=== PATIENT | male | born 1940 | race Caucasian/White ===

== ENCOUNTER → 2016-11-29 | Outpatient (CLI) | payer OTHER, BC ==
--- NOTE | ~2016-11-29 | EXE ---
[facility] [employer]anny [place] [address] STRESS ECHOCARDIOGRAM Name: JOSHUA CAMPA Room #: REG [facility]#: [id number] Admission: 11/29/16 Attend Phys: Mark Alberts MD Discharge: Date of : 38 Date of Service: 11/29/16 1514 Report #: [id number] THIS REPORT FOR: //name// ADDENDUM APPROVED REPORT Exam: Stress Echocardiogram Indication: Chest pain Patient Location: Echo lab Stress Nurse: Andree Bradshaw RN Status: routine Ht: 5 ft 8 in BP: 154/94 mmHg Medical History Medical History: HTN Procedure The patient underwent an Exercise Stress Test using the Chevy Protocol. Blood pressure, heart rate, and EKG were monitored. An Echocardiogram was performed by asbestos abatement technician in four stages in quad fashion. At peak stress, four selected images were obtained and placed side by side with resting images for comparison. Stress Test Details Stress Test: Exercise stress testing was performed using a Chevy protocol. HR Resting HR: 90 bpm Max Heart Rate (APMHR): 143 bpm Max HR Achieved: 157 bpm Target HR (85% APMHR): 121 bpm % of APMHR: 109 Recovery HR: 96 bpm BP Resting BP: 154/94 mmHg Max BP: 174/98 mmHg Recovery BP: 148/80 mmHg ECG Resting ECG: Sinus Rhythm, nonspecific ST-T abnormalities Stress ECG: Sinus Rhythm, nonspecific ST-T abnormalities ST Change: Non-ischemic Clinical Reason for Termination: Completed protocol/moderate fatigue [facility] [address] [place] [address] STRESS ECHOCARDIOGRAM Name: JOSHUA CAMPA Room #: REG [facility].#: [id number] Admission: 11/29/16 Attend Phys: Mark Alberts MD Discharge: Date of : 38 Date of Service: 11/29/16 1514 Report #: [id number] Exercise duration: 9 min 17 sec Highest Stage Achieved: Stage 4: 4.2 mph at 16% grade. Exercise capacity: 10.9 METs Pre-Stress Echo The resting Echocardiogram showed normal left ventricular contractility with an estimated Ejection Fraction of about 55-60%. Mild AI, no MR, no TR noted. Post-Stress Echo The stress Echocardiogram showed normal left ventricular contractility with an estimated Ejection Fraction of about 60-65%. Conclusion Clinical Response: Non-ischemic Exercise Capacity: Above average Stress ECG Response: Non-ischemic Stress Echo Images: Non-ischemic No clinical, EKG or echocardiographic evidence for ischemia. No prior study available for comparison. Other Information Study Quality: Adequate <Conclusion> No clinical, EKG or echocardiographic evidence for ischemia. <ELECTRONICALLY SIGNED> By: Sebastien Jones MD 11/29/16 1514 1514 1514 Sebastien Jones MD /MICHOACANO
== END ==
LOC: CV 13:22
DX: R07.9 Chest pain, unspecified (principal)

== ENCOUNTER → 2017-02-15 | Outpatient (CLI) | payer OTHER, BC | LOC: NUC 07:32 | DX: K80.20 Calculus of gallbladder without cholecystitis without obstruction (principal) ==

== ENCOUNTER 2017-04-12 10:40 | Inpatient (IN) | payer OTHER, BC ==
[~2017-04-12] VITALS: Ht 172.7 cm; Wt 78.9 kg
--- NOTE | ~2017-04-12 | EKG ---
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 : 1940 Requested By: Allison Mahajan Order Number: [id number] MD: Parish Ruiz Measurements Intervals [place] Rate: 91 P: 31 MI: 163 QRS: -46 QRSD: 142 T: 13 QT: 375 QTc: 462 Interpretive Statements Sinus rhythm RBBB and LAFB Compared to ECG 09/11/2000 11:31:35 Left anterior fascicular block now present Right bundle-branch block now present Electronically Signed On 04-12-2017 15:16:40 COILED TUBING SUPERVISOR by Parish Ruiz [email or web address] <ELECTRONICALLY SIGNED> By: Parish Ruiz MD 04/12/17 1516 1104 1104 Parish Ruiz MD /EPI
--- NOTE | ~2017-04-12 | HC ---
[facility] [place] [address] CONSULTATION Name: BOGILBERTOJOSHUA DUFF Room #: 351-P [facility] IN M.R.#: [id number] Admission: 04/12/17 Attend Phys: Mark Alberts MD Discharge: 04/13/17 Date of : 38 Report #: [id number] THIS REPORT FOR: //name// CC: Mark Alberts DATE OF SERVICE: 04/12/2017 HISTORY OF PRESENT ILLNESS: This is a 76-year-old male patient who was evaluated by me for loss of short-term memory. His provides history. She noticed this at 9:30, but it is clear that he woke up with it. She never saw this patient normal after he woke up and she has left and when she came at 9:30 and that is the time, she had a detailed conversation and realized that the patient's speech was intact, but he was repeating the things again and again. He has not improved any. So from the history, it is clear now that he woke up with these episodes and the patient's just noticed at 9:30 when she came back home. He had a recent gallbladder surgery that was about 2 weeks ago. He has no associated focal deficit. He does not even realize that he is having memory deficit. REVIEW OF SYSTEMS: Indicate that he does note that he has hypertension. Some of his long-term memory is preserved like he knows that he has hypertension, he knows his date of , but other memories are significantly impaired like he cannot tell me the age of his children, but can tell me that he has 3 children. I carried out his 14-point review of system. He does have hypertension. He had cholecystectomy. Otherwise, he is healthy and his 14-point review of system is mostly unremarkable. PAST MEDICAL HISTORY: Negative for this kind of episode. FAMILY HISTORY: Negative for any epilepsy. SOCIAL HISTORY: This patient does drink alcohol. He usually drinks 2-3 drinks and does indicate that he did drink about 1 alcoholic drink last night. He does not smoke. PHYSICAL EXAMINATION: NEUROLOGIC: Indicate he is alert. He is responsive. He is able to follow simple and complex command. He does not know what month it is. He has no speech difficulty like dysarthria or dysphasia. His short-term memory is virtually nonexistent at the moment. Some long-term memory is present. Cranial nerve examination 2-12 is unremarkable. Neuromuscular examination is symmetrical. There is no meningeal sign. There is no carotid bruit. There is no thyroid mass. I could not look at the patient's fundus. GENERAL: He is a well-developed individual. HEENT: Does not have any dysmorphic features of eyes, ears and face. His vision and hearing looks adequate. [facility] [address] [place] [address] CONSULTATION Name: JOSHUA CAMPA Room #: 351-P DIS IN M.R.#: [id number] Admission: 04/12/17 Attend Phys: Mark Alberts MD Discharge: 04/13/17 Date of : 38 Report #: [id number] SKIN: He has no edema, cyanosis or jaundice. VITAL SIGNS: His blood pressure is 171/91, respirations 14, pulse is 102 and temperature is 98.3. LABORATORY DATA: Indicates a platelet count of 149. His GFR is 65. He did have a CT head and a CT angiogram done before I saw him and they were mostly unremarkable except for what looks like anatomical variations. His perfusion is normal. IMPRESSION: This patient's clinical presentation is consistent with transient global amnesia. It is unlikely it is stroke. In any event, it is pretty clear now that he woke up with these symptoms and the does not know for sure that he was normal at 7:00 a.m. because the conversation was very limited. He does have a meningioma, can have nonconvulsive seizures, but the history is more consistent with transient global amnesia. RECOMMENDATIONS: 1. MRI of the brain. 2. EEG. 3. Main thing is going to be watched, it is most likely transient global amnesia. Even if it is a stroke, no intervention can be done because this patient woke up with these symptoms. I discussed all of it with the patient as well as the patient's as well as Emergency Room physician multiple times. Thank you very much for this referral and if you have any questions, please feel free to contact me. <ELECTRONICALLY SIGNED> By: Hardy Sepulveda MD 04/20/172008 1245 2311 Hardy Sepulveda MD /nt
--- NOTE | ~2017-04-12 | D ---
[facility] [place] [address] DISCHARGE SUMMARY Name: JOSHUA CAMPA Room #: 351-P [facility] IN M.R.#: [id number] Admission: 04/12/17 Attend Phys: Mark Alberts MD Discharge: 04/13/17 Date of : 38 Report #: [id number] THIS REPORT FOR: //name// CC: Mark Alberts DATE OF ADMISSION: 04/12/2017 DATE OF DISCHARGE: 04/13/2017 HOSPITAL COURSE: This is a 76-year-old male with a known meningioma and benign essential hypertension who had the acute onset of confusion witnessed by his . He seemed unable to remember details of information, but his speech was clear and he had no motor deficits. No seizure activity was identified. She called for recommendation and was referred to the emergency room where he was seen by Dr. Allison Mahajan and subsequently by neurologist, Dr. Sepulveda. HOSPITAL COURSE: The patient was seen in the emergency room, at which time he was noted to be confused and unable to retain information. He had no focal deficits with no motor weakness. A CT scan of the brain and MRI were performed, which showed a stable meningioma with associated vasogenic edema, but no acute ischemic findings or hemorrhage. Clinically, the patient was felt to have transient global amnesia and he was hospitalized for overnight observation. During the late afternoon, the patient became totally clear and had resolution of all of his neurologic deficits, and he remained stable overnight. The patient was discharged on the morning of April 13 for outpatient followup. FINAL DIAGNOSES: 1. Transient global amnesia. 2. Frontal meningioma with vasogenic edema, stable. 3. Benign essential hypertension, controlled. 4. Chest pain, noncardiac. DISCHARGE MEDICATIONS: The patient is resuming all of his home medications, which include simvastatin 10 mg, valsartan 320 mg, Celebrex 200 mg, hydroxychloroquine 400 mg, Nasacort nasal inhaler, aspirin 81 mg, vitamin D3 2000 units. DISPOSITION: Resume usual activities, may return to work and drive a motor vehicle. He is to be seen in the office in 2 weeks. No limitations were placed on the patient. Regular diet. LAB INSTRUCTOR: Hardy Sepulveda M.D. (neurology). [facility] [address] [place] [address] DISCHARGE SUMMARY Name: JOSHUA CAMPA Room #: 351-P DIS IN [facility].#: [id number] Admission: 04/12/17 Attend Phys: Mark Alberts MD Discharge: 04/13/17 Date of : 38 Report #: [id number] PROCEDURES: None. <ELECTRONICALLY SIGNED> By: Mark Alberts MD 04/26/17 0642 0704 0801 Mark Alberts MD /nt
--- NOTE | ~2017-04-12 | H ---
[facility] [place] [address] HISTORY AND PHYSICAL Name: JOSHUA CAMPA Room #: 351-P ADM IN M.R.#: [id number] Admission: 04/12/17 Attend Phys: Mark Alberts MD Discharge: Date of : 38 Report #: [id number] THIS REPORT FOR: //name// CC: Mark Alberts DATE OF SERVICE: 04/12/2017 This patient presented to the Emergency Room on the request of his primary care physician. CHIEF COMPLAINT: Confusion (per ). HISTORY OF PRESENT ILLNESS: Earlier this morning, the patient's noted that he was confused, could not recall events. His speech was clear and he had no evidence of motor weakness, but he repeated himself and seemed unable to retain information. Dr. Alberts was consulted by phone with a preliminary diagnosis of transient global amnesia. It was recommended that the patient be taken to the Emergency Department for evaluation. In the Emergency Room, the patient has been seen by Dr. Silvina Mahajan and by neurologist, Dr. Sepulveda. He has been admitted to the hospital for overnight observation with concern for seizure or stroke syndrome, in spite of his negative preliminary workup. Specifically, the patient has returned to baseline mental status. He has no focal neurologic deficits. An MRI was performed, which showed a stable meningioma with vasogenic edema and a CT scan was performed, which showed no acute changes. PAST MEDICAL HISTORY: The patient has rheumatoid arthritis, hypertension, a frontal meningioma with vasogenic edema and osteoporosis. He was diagnosed in 2017 with obstructive sleep apnea for which he is using a CPAP mask. Minor diagnoses include psoriasis, gout, periodontal disease and rosacea. PAST SURGICAL HISTORY: The patient had a laparoscopic cholecystectomy this month with Dr. Bar. Prior history of tonsillectomy, periodontal surgery and removal of basal cell carcinomas. CURRENT MEDICATIONS: Simvastatin 10 mg, valsartan 320 mg, Celebrex 200 mg, hydroxychloroquine 400 mg, Nasacort inhaler, aspirin 81 mg, vitamin D3 2000 units. 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 He is a nonsmoker. Does consume social alcohol. He is . Recently receiving home health care with physical therapy, occupational therapy and a visiting nurse, following a cholecystectomy. [address] [address] HISTORY AND PHYSICAL Name: JOSHUA CAMPA Room #: 351-P [facility] IN .R.#: [id number] Admission: 04/12/17 Attend Phys: Mark Alberts MD Discharge: Date of : 38 Report #: [id number] REVIEW OF SYSTEMS: GASTROINTESTINAL: He is unclear if his cholecystectomy has resulted any change in his abdominal complaints (bloating). PULMONARY: Negative. CARDIOVASCULAR: Negative. PHYSICAL EXAMINATION: GENERAL: The patient is awake, alert, oriented in all spheres. He is amnestic for the ____ of the morning. Does recall getting up, then has a period of amnesia following which he remembers some of the interventions performed during his Emergency Room visit. The patient has no focal deficits, with no motor weakness. His speech is clear. His orientation is intact to person, place and situation. LUNGS: Clear. CARDIOVASCULAR: S1 and S2 are normal. ABDOMEN: Recent incisions are healing well. The abdomen is rotund, but soft and nontender. IMPRESSION: 1. Altered mental status, resolved, consistent with transient global amnesia (TGA). Although the patient has a stable meningioma, doubt this represents seizure. There is nothing to suggest a diagnosis of ischemic disease in the central nervous system. 2. Frontal meningioma with vasogenic edema, stable. 3. Benign essential hypertension. PLAN: The patient has been seen by Neurology, has now returned to baseline. We will plan to discharge the patient first thing in the morning and send him home for outpatient management utilizing the same home medications. <ELECTRONICALLY SIGNED> By: Mark Alberts MD 04/13/17 0642 [id number] 2226 Mark Alberts MD /nt
--- NOTE | ~2017-04-12 | EEG ---
[facility] [place] [address] ELECTROENCEPHALOGRAM Name: JOSHUA CAMPA Room #: 351-P [facility] IN M.R.#: [id number] Admission: 04/12/17 Attend Phys: Mark Alberts MD Discharge: 04/13/17 Date of : 38 Report #: [id number] THIS REPORT FOR: //name// CC: Mark Alberts DATE OF SERVICE: 04/12/2017 This patient is admitted with symptoms suggestive of transient global amnesia. EEG was done by placing the electrodes by standard 10-20 system of electrode placement. Both referential and sequential montages were used for recording. Background activity in this patient's EEG is about 11 Hz and 40 microvolt. It is a symmetrical activity. The patient became drowsy that is associated with bilateral slowing. Photic stimulation was unremarkable. Throughout the record, no active epileptiform activity was noticed. IMPRESSION: This patient's EEG is within normal limit. Thank you very much for this referral. <ELECTRONICALLY SIGNED> By: Hardy Sepulveda MD 04/20/172010 03 22 Hardy Sepulveda MD /nt
--- NOTE | ~2017-04-12 | EKG ---
[address] [place] [address] ELECTROCARDIOGRAM REPORT Name: JOSHUA CAMPA Room #: 170-5 ADM IN M.R.#: [id number] Admission: 04/12/17 Attend Phys: Mark Alberts MD Discharge: Date of : 38 Report #: [id number] THIS REPORT FOR: //name// [facility] ED Test Date: 2017-04-12 Test Time: 11:32:43 Pat Name: JOSHUA CAMPA Department: Room: 170 Gender: M Commodity Broker: MICHAEL : 1940 Requested By: Allison Mahajan Order Number: [id number] MD: Parish Ruiz Measurements Intervals [place] Rate: 105 P: 58 [place]: 177 QRS: -49 QRSD: 147 T: 13 QT: 332 QTc: 439 Interpretive Statements Sinus tachycardia RBBB and LAFB Compared to ECG 09/11/2000 11:31:35 Left anterior fascicular block now present Right bundle-branch block now present Sinus rhythm no longer present Electronically Signed On 04-12-2017 15:16:57 LETTER OF CREDIT CLERK by Parish Ruiz [email or web address] <ELECTRONICALLY SIGNED> By: Parish Ruiz MD 04/12/17 1516 1132 1132 Parish Ruiz MD /EPI
[2017-04-12 10:42] VITALS: BP 170/97
[2017-04-12 11:00] LABS: ABSOLUTE NEUTROPHILS 4.1 thou/uL (1.4-8.2); BASOPHILS 0.7 % (0.0-2.0); EOSINOPHILS 2.3 % (0.0-3.0); HEMATOCRIT 44.7 % (42.0-52.0); HEMOGLOBIN 15.3 gm/dL (14.0-18.0); LYMPHOCYTES 17.4 % (24.0-44.0); MCH 31.4 pg (26.0-34.0); MCHC 34.2 g/dL (28.0-37.0); MONOCYTES 6.1 % (1.0-8.0); PLATELET COUNT 149 thou/uL (150-400); POLYS 73.5 % (36.0-66.0); RBC 4.86 mil/uL (4.50-6.00); RDW 12.5 % (10.5-14.5); WBC 5.6 thou/uL (4.0-11.0)
[2017-04-12 11:07] LABS: CALCIUM 9.1 mg/dL (8.5-10.1); CREATININE 1.1 mg/dL (0.7-1.3); POTASSIUM 3.7 mmol/L (3.5-5.1)
[2017-04-12] MEDS ORDERED: DIOVAN 80 MG TA80 M1 PO (11:07)
[2017-04-12] MEDS ORDERED: ZOCOR20 MG PO (11:07)
[2017-04-12] MEDS ORDERED: CELEBREX 200 M200 M1 PO (11:08)
[2017-04-12] MEDS ORDERED: BIOTIN0.5 GM PO (11:09)
[2017-04-12] MEDS ORDERED: ASPIR 8181 M1 PO (11:09)
[2017-04-12 11:48] LABS: URINE BILIRUBIN NEGATIVE (Negative); URINE BLOOD NEGATIVE (Negative); URINE CLARITY CLEAR; URINE COLOR YELLOW; URINE GLUCOSE-RANDOM* NEGATIVE (Negative); URINE KETONES NEGATIVE (Negative); URINE LEUKOCYTES NEGATIVE (Negative); URINE NITRITE NEGATIVE (Negative); URINE PROTEIN (DIPSTICK) NEGATIVE (Negative); URINE SPECIFIC GRAVITY <= 1.005 (1.005-1.035); URINE UROBILINOGEN 0.2 E.U./dl (0.2-1.0)
[2017-04-12 14:56] VITALS: BP 171/91
[2017-04-12 15:50] VITALS: BP 141/100
[2017-04-12 19:20] VITALS: BP 121/79
[2017-04-13 03:15] VITALS: BP 118/77
[2017-04-13 08:12] VITALS: BP 126/69
[2017-04-13 09:34] VITALS: BP 126/69
== END 2017-04-13 10:41 | disposition home or self-care (01) | DRG 72 ==
LOC: ER 10:40 → 3W 12:39 → EROBS 12:39 → 3W 15:54
PROVIDERS: Emergency Medicine
DX: G45.4 Transient global amnesia (principal); I10 Essential (primary) hypertension; M06.9 Rheumatoid arthritis, unspecified; D32.9 Benign neoplasm of meninges, unspecified; M81.0 Age-related osteoporosis without current pathological fracture; G47.33 Obstructive sleep apnea (adult) (pediatric); M10.9 Gout, unspecified; Z90.49 Acquired absence of other specified parts of digestive tract; Z79.82 Long term (current) use of aspirin; Z79.899 Other long term (current) drug therapy
CPT/HCPCS: 10879

== ENCOUNTER → 2018-03-21 | Outpatient (CLI) | payer OTHER ==
[~2018-03-21] MED LIST: ASPIR 8181 M1 PO; BIOTIN0.5 GM PO; CELEBREX 200 M200 M1 PO; DIOVAN 80 MG TA80 M1 PO; ZOCOR20 MG PO
== END ==
LOC: CAT 13:16
DX: Z13.6 Encounter for screening for cardiovascular disorders (principal); E78.00 Pure hypercholesterolemia, unspecified

== ENCOUNTER → 2018-10-12 | Outpatient (CLI) | payer OTHER, BC | LOC: CAT 06:59 → LABMALL 06:59 → CAT 16:32 | DX: R91.1 Solitary pulmonary nodule (principal); R14.0 Abdominal distension (gaseous); Z90.49 Acquired absence of other specified parts of digestive tract ==

== ENCOUNTER → 2019-11-28 | Outpatient (CLI) | payer BC | LOC: SJCVC 10:43 | PROVIDERS: ATTEND Internal Medicine Cardiovascular Disease | DX: I25.10 Atherosclerotic heart disease of native coronary artery without angina pectoris (principal); I10 Essential (primary) hypertension; I45.2 Bifascicular block; R94.31 Abnormal electrocardiogram [ECG] [EKG]; E78.00 Pure hypercholesterolemia, unspecified; R53.83 Other fatigue; G47.30 Sleep apnea, unspecified; M10.9 Gout, unspecified; Z90.49 Acquired absence of other specified parts of digestive tract; Z79.82 Long term (current) use of aspirin; Z79.899 Other long term (current) drug therapy ==

== ENCOUNTER → 2020-01-02 | Outpatient (CLI) | payer OTHER, BC | LOC: SJCVCIMAG 07:15 | PROVIDERS: ATTEND Internal Medicine Cardiovascular Disease | DX: I35.1 Nonrheumatic aortic (valve) insufficiency (principal); I10 Essential (primary) hypertension; I45.10 Unspecified right bundle-branch block; E78.00 Pure hypercholesterolemia, unspecified; Z79.899 Other long term (current) drug therapy ==

== ENCOUNTER → 2020-11-18 | Outpatient (CLI) | payer OTHER, BC | LOC: SJCVC 11:08 → SJCVCIMAG 11:08 | PROVIDERS: ATTEND Internal Medicine Cardiovascular Disease | DX: I65.23 Occlusion and stenosis of bilateral carotid arteries (principal); I45.2 Bifascicular block; R94.31 Abnormal electrocardiogram [ECG] [EKG]; I49.3 Ventricular premature depolarization; R09.89 Other specified symptoms and signs involving the circulatory and respiratory systems; E78.00 Pure hypercholesterolemia, unspecified; R93.1 Abnormal findings on diagnostic imaging of heart and coronary circulation; I10 Essential (primary) hypertension; M10.9 Gout, unspecified; G47.30 Sleep apnea, unspecified; Z72.89 Other problems related to lifestyle; Z79.899 Other long term (current) drug therapy ==